=== PATIENT | male | born 1950 | race Caucasian/White ===

== ENCOUNTER 2018-07-14 08:50 | Day surgery (SDC) | payer MEDICARE ==
[~2018-07-14] VITALS: Ht 180.3 cm; Wt 79.5 kg
[~2018-07-14 08:50] MED LIST: BUPIVACAINE/PF-EPI 0.5% 1:200K ONE
[2018-07-14] MEDS ORDERED: LACTATED RINGERS 1,000 ML IV SCH (09:36)
[2018-07-14 09:41] VITALS: BP 155/87
[2018-07-14] MEDS ORDERED: FENTANYL PF 100 MCG/2ML ONE (10:55)
[2018-07-14] MEDS ORDERED: MIDAZOLAM 1 MG/ML, 2ML ONE (10:55)
[2018-07-14] MEDS ORDERED: ROCURONIUM 10MG/ML,5ML ONE (11:04)
[2018-07-14] MEDS ORDERED: SUCCINYLCHOLINE 20 MG/ML, 10ML ONE (11:04)
[2018-07-14] MEDS ORDERED: CEFAZOLIN 1,000 MG ONE ×2 (11:04)
[2018-07-14] MEDS ORDERED: PROPOFOL 10 MG/ML, 20ML ONE (11:04)
[2018-07-14] MEDS ORDERED: DEXAMETHASONE 4 MG/ML, 1ML ONE (11:04)
[2018-07-14] MEDS ORDERED: ONDANSETRON 2MG/ML, 2ML ONE (11:04)
[2018-07-14] MEDS ORDERED: KETOROLAC 30 MG/1 ML ONE (11:18)
[2018-07-14] MEDS ORDERED: MIDAZOLAM 1 MG/ML, 2ML IV PRN (11:30)
[2018-07-14] MEDS ORDERED: EPHEDRINE 50 MG/ML, 1ML IVPush PRN (11:30)
[2018-07-14] MEDS ORDERED: PROMETHAZINE 25 MG/ML, 1ML IV PRN (11:30)
[2018-07-14] MEDS ORDERED: LABETALOL 5MG/ML, 20ML IV PRN (11:30)
[2018-07-14] MEDS ORDERED: ACETAMINOPHEN 325 MG TABLET PO PRN (11:30)
[2018-07-14] MEDS ORDERED: LORazepam 2 MG/ML, 1ML IVPush PRN (11:30)
[2018-07-14] MEDS ORDERED: HYDROmorphone 1 MG/ML, 1ML IV PRN (11:30)
[2018-07-14] MEDS ORDERED: OXYcodone 5 MG/5 ML ORAL.SOL UDC PO PRN (11:30)
[2018-07-14] MEDS ORDERED: ONDANSETRON 2MG/ML, 2ML IV PRN (11:30)
[2018-07-14] MEDS ORDERED: PROMETHAZINE 12.5 MG SUPP PR PRN (11:30)
[2018-07-14] MEDS ORDERED: ONDANSETRON ODT 8 MG PO PRN (11:30)
[2018-07-14] MEDS ORDERED: ALBUTEROL SULFATE 2.5 MG/3 ML NPPB PRN (11:30)
[2018-07-14] MEDS ORDERED: FENTANYL PF 100 MCG/2ML IV PRN (11:30)
[2018-07-14] MEDS ORDERED: MORPHINE SULFATE 4 MG/ML, 1ML IVPush PRN (11:30)
[2018-07-14] MEDS ORDERED: MEPERIDINE/PF 25MG/0.5ML IVPush PRN (11:30)
[2018-07-14] MEDS ORDERED: hydrALAzine 20 MG/ML, 1ML IV PRN (11:30)
[2018-07-14] MEDS ORDERED: ACETAMINOPHEN 650 MG/20.3 ML UDC ONE (11:52)
[2018-07-14] MEDS ORDERED: OXYcodone 5 MG/5 ML ORAL.SOL UDC ONE (11:53)
== END 2018-07-14 14:35 | disposition home or self-care (01) ==
LOC: OUT 08:50
PROVIDERS: ATTEND Surgery
DX: K43.9 Ventral hernia without obstruction or gangrene (principal); Z72.89 Other problems related to lifestyle
CPT/HCPCS: 49560; 49568; 93005; C1781; J0330; J0690; J1100; J1885; J2250; J2405; J2704; J3010